=== PATIENT | female | born 1950 | race Caucasian/White ===

== ENCOUNTER 2022-04-13 11:58 | Emergency (ER) | payer MEDICARE, MEDICAID, SELFPAY ==
--- NOTE | ~2022-04-13 | CT_ITS ---
EXAMINATION: CT brain wo con DATE: 04/13/2022 13:32 INDICATION: Dizziness. Headache. TECHNIQUE: Computed tomography (CT) of the head was performed without intravenous contrast. The mA wa s adjusted according to patient size. Iterative reconstruction technique was employed. The dose-lengt h product was 605.33 mGy-cm. COMPARISON: Head CT 07/29/2011 FINDINGS: There are scattered areas of low attenuation in the cerebral white matter, which is within normal limits for the patient's age. There is no intracranial hemorrhage, acute infarction, or abnorm al intracranial mass lesion. The ventricles are normal in size. There are likely changes of left ocul ar lens replacement surgery. There is mild mucosal thickening in the paranasal sinuses. The mastoid a ir cells are normal. IMPRESSION: 1. Normal aging brain. Reviewed, dictated and finalized at location A. IMPRESSION: 1. Normal aging brain.
[2022-04-13 12:28] VITALS: BP 133/99; PULSE 86; RESP 22; TEMP 36.2; O2SAT 99
--- NOTE | 2022-04-13 12:52 | ECG_ITS ---
Measurements Intervals Chrisman Rate: 76 P: 56 WY: 186 QRS: 35 QRSD: 67 T: 39 QT: 354 QTc: 399 Interpretive Statements SINUS RHYTHM LOW QRS VOLTAGE IN PRECORDIAL LEADS BORDERLINE R WAVE PROGRESSION, ANTERIOR LEADS BASELINE ARTIFACT- I, III, AVL BORDERLINE ECG NO PREVIOUS ECG AVAILABLE FOR COMPARISON Electronically Signed On 04-13-2022 13:46:55 CDT by Clifford Jc D.O.
--- NOTE | 2022-04-13 12:53 | ED.FEMALEGU ---
HPI - Female Genitourinary General Chief complaint: Urogenital-Female Stated complaint: UTI/vomit/pain in stomach & kidneys Time Seen by Provider: 04/13/22 12:34 Source: patient History of Present Illness HPI Narrative: 71-year-old female with a history of diabetes mellitus, hypothyroidism, neuropathy, peripheral vascular disease, coronary artery disease status post CABG in 2007, COPD, lung nodules, chronic pain, status post hysterectomy, partial colectomy and cholecystectomy was admitted to the hospital 2 months ago for abdominal pain, chest pain and dizziness. She had a negative stress test according to the patient. The patient developed retention of urine for which she had a Baker's catheter placed. The Baker catheter was taken out 2 weeks ago by a urologist and advised intermittent self catheterization every 4 hours. The patient developed -- abdominal pain predominantly in the suprapubic region. The patient has a history of multiple abdominal surgeries including cholecystectomy, 4 C sections, hysterectomy at age 20, partial colectomy for bowel obstruction. -- dysuria and urethral pain for which she was started on Cipro. she is also noted to have bilateral flank pain. the patient has urethral pain whenever she self catheterizes herself. She is also noted to have urinary incontinence. -- dizziness -- Nausea and vomiting -- the patient has Fibromyalgia with chronic low back pain, abdominal pain for which she was on fentanyl and Merrill 10/325 at 1 point of time. The patient ran out of her Merrill 1 month ago. She was also noted to be allergic to fentanyl. -- patient gets 1 L infusion of normal saline 3 times a week.She had colectomy following which she has large volume diarrhea which makes a dehydrated. She has been getting the IV saline infusions for the past 5 years. MD elicited complaint: dysuria, UTI and urinary incontinence Pertinent past history: recurrent UTIs, urinary incontinence and diabetes Onset (ago): day(s) Location of symptoms: perineum, suprapubic, urethra and low back Severity: severe Female Urogenital Radiation: Non-Radiating Quality of pain: sharp and burning Consistency: intermittent Vaginal discharge: none Vaginal bleeding: none Urinary symptoms: Dysuria, Urgency, Frequency, Hematuria, Difficulty Urinating and Flank Pain Exacerbating factors: none Relieving factors: none Associated symptoms: denies other symptoms Treatment prior to arrival: none Patient : No Related Data Para: 4 Home Medications Medication Instructions Recorded Confirmed albuterol sulfate 90 mcg/actuation 2 puff inhalation QID PRN 04/13/22 04/13/22 aerosol inhaler (ProAir HFA) Shortness Of Breath aripiprazole 10 mg tablet (Abilify) 10 mg PO DAILY 04/13/22 04/13/22 aspirin 325 mg tablet 325 mg PO DAILY 04/13/22 04/13/22 atorvastatin 20 mg tablet 20 mg PO DAILY 04/13/22 04/13/22 buspirone 10 mg tablet 10 mg PO TID 04/13/22 04/13/22 clopidogrel 75 mg tablet 75 mg PO DAILY 04/13/22 04/13/22 cyclobenzaprine 10 mg tablet 10 mg PO TID PRN Pain 04/13/22 04/13/22 fluticasone furoate 100 1 inh inhalation DAILY 04/13/22 04/13/22 mcg-vilanterol 25 mcg/dose inhalation powder hydroxyzine HCl 25 mg tablet 25 mg PO TID PRN Itching 04/13/22 04/13/22 insulin aspart 8 - 18 unit subcut TID 04/13/22 04/13/22 (niacinamide)(U-100) 100 unit/mL(3 mL) subcutaneous pen insulin aspart U-100 100 unit/mL 75 unit subcut DAILY 04/13/22 04/13/22 subcutaneous cartridge insulin degludec 200 unit/mL (3 26 unit subcut DAILY 04/13/22 04/13/22 mL) subcutaneous pen (Tresiba FlexTouch U-200 insulin) ipratropium 0.5 mg-albuterol 3 mg 3 ml inhalation Q4H PRN SOB 04/13/22 04/13/22 (2.5 mg base)/3 mL nebulization soln ipratropium 20 mcg-albuterol 100 1 puff inhalation QID 04/13/22 04/13/22 mcg/actuation mist for inhalation (Combivent Respimat) isosorbide mononitrate 30 mg 30 mg PO DAILY 04/13/22 04/13/22 tablet,extended release 24 hr ivabradine 7.5 mg
[2022-04-13 13:02] LABS: Add Urine Microscopic? YES; Appearance Urine Clear (Clear); Bilirubin Urine Negative (Negative); Blood Urine Negative (Negative); Color Urine Light Yellow (Yellow); Glucose Urine UA Negative (Negative); Ketones Urine Negative (Negative); Leukocyte Esterase Ur Trace (Negative); Nitrate Urine Positive (Negative); Protein Urine Trace (Negative); Specific Grav Ur 1.015 (1.010-1.020); Urobilinogen Urine 0.2 mg/dL (0.2-1.0)
[2022-04-13 13:06] LABS: Bacteria Urine 3+ /hpf; RBC Urine None seen /hpf (0-2); Squamous Epithelial Cell Urine None seen /hpf (Few)
[2022-04-13 13:24] LABS: Basophils Absolute Auto 0.06 K/mm3 (0.00-0.10); Basophils Percent Auto 0.8 % (0.0-1.0); Eosinophils Absolute Auto 0.27 K/mm3 (0.02-0.50); Eosinophils Percent Auto 3.6 % (1.0-6.0); Hematocrit 36.6 % (35.0-42.0); Hemoglobin 12.4 g/dL (11.7-13.8); Immature Granulocyte Absolute 0.03 K/mm3 (0.00-0.00); Immature Granulocyte Percent A 0.4 % (0.0-0.0); Lymphocytes Absolute Auto 2.62 K/mm3 (1.10-4.50); Mean Corpuscular HGB Conc 33.9 g/dL (32.0-36.0); Mean Corpuscular Hemoglobin 31.2 pg (27.0-31.0); Mean Corpuscular Volume 92.2 fL (78.0-102.0); Mean Platelet Volume 9.9 fl (9.2-11.8); Neutrophils Absolute Auto 3.9 K/mm3 (1.7-7.2); Neutrophils Percent Auto 52.2 % (50.0-70.0); Platelet Count Result 205 K/mm3 (150-420); Red Blood Count 3.97 M/mm3 (4.20-5.40); Red Cell Distribution Width 12.8 % (11.6-14.4); White Blood Count 7.5 K/mm3 (4.8-10.8)
[2022-04-13 13:39] LABS: Prothrombin Time 10.6 Seconds (9.50-12.10)
[2022-04-13 13:40] VITALS: BP 133/50; PULSE 73; RESP 16; TEMP 36.3; O2SAT 98
[2022-04-13 13:45] LABS: Troponin I 6.4 ng/L (0.00-60.4)
[2022-04-13 13:45] LABS: Alanine Aminotransferase 29 U/L (14-59); Albumin Level 3.4 g/dL (3.4-5.0); Alkaline Phosphatase 113 U/L (46-116); Anion Gap 8 mmol/L (8-16); Aspartate Amino Transferase 33 U/L (15-37); Bilirubin,Total 0.4 mg/dL (0.00-1.00); Blood Urea Nitrogen 16 mg/dL (7-18); Calcium 8.8 mg/dL (8.5-10.1); Carbon Dioxide 24 mmol/L (21-32); Chloride 103 mmol/L (98-108); Estimated CRCL calculation 38 ml/min; Estimated Glomerular Filt Rate 51; Glucose 175 mg/dL (70-99); Lipase 138 U/L (73-393); Osmolality Calculated 285 mOsm/kg (285-295); Potassium 4.7 mmol/L (3.5-5.1); Sodium 135 mmol/L (136-145); Total Protein 7.1 g/dL (6.4-8.2)
[2022-04-13 14:38] VITALS: BP 146/88; PULSE 77; RESP 16; TEMP 36.4; O2SAT 97
--- NOTE | 2022-04-13 14:42 | PC.NURSE ---
On 04/13/22, the student, [ roxie vaca], provided care and completed [facility] documentation on this patient. I have reviewed the student's documentation and agree with the findings.
[2022-04-13] MEDS: HEPARIN SODIUM LOCK FLUSH 500 UNITS/5 ML SYRINGE (14:44)
== END 2022-04-13 14:44 | disposition home or self-care (01) ==
PROVIDERS: Emergency Provider Internal Medicine Critical Care Medicine
DX: N39.0 Urinary tract infection, site not specified (principal); N18.9 Chronic kidney disease, unspecified; E11.65 Type 2 diabetes mellitus with hyperglycemia; Z79.4 Long term (current) use of insulin; J44.9 Chronic obstructive pulmonary disease, unspecified; I25.10 Atherosclerotic heart disease of native coronary artery without angina pectoris; E03.9 Hypothyroidism, unspecified
CPT/HCPCS: 36415; 51701; 70450; 80053; 81001; 83605; 83690; 84484; 85025; 85610; 85730; 87040; 93005; 99284

== ENCOUNTER 2024-06-02 11:34 | Outpatient (CLI) | payer MEDICARE, SELFPAY ==
--- NOTE | ~2024-06-02 | XR_ITS ---
CHEST RADIOGRAPH, PA AND LATERAL CLINICAL HISTORY: shortness of breath . COMPARISON: None available TECHNIQUE: PA and lateral views of the chest. FINDINGS Sternal wires and mediastinal clips are identified, the wires are midline and intact. The remainder of the cardiomediastinal silhouette is otherwise unremarkable. The lungs are clear. Visualized osseous structures and soft tissues are unremarkable. IMPRESSION: No focal infiltrate or effusion. Reviewed, dictated and finalized at location A. ICIST [employer]ID STATE
--- NOTE | ~2024-06-02 | NM_ITS ---
EXAMINATION: NM lung vent and perfusion DATE: 06/02/2024 12:25 INDICATION: Shortness of breath. TECHNIQUE: 20.3 mCi Xenon-133 was given for ventilation images. 5.5 mCi Tc-99m MAA was administered i ntravenously for perfusion images. Scintigraphic images of the chest were obtained. COMPARISON: Chest 2 views 06/02/24 FINDINGS: Ventilation images demonstrate small defects in the upper lobes. There is retention of activity in th e lower lung zones bilaterally. Perfusion images demonstrate no defects. IMPRESSION: 1. Normal perfusion. Reviewed, dictated and finalized at location A. 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 Normal perfusion.
== END 2024-06-02 11:35 | disposition home or self-care (01) ==
PROVIDERS: PCP Physician Assistant; Visit Provider Physician Assistant
DX: R79.89 Other specified abnormal findings of blood chemistry (principal); R06.02 Shortness of breath
CPT/HCPCS: 71046; 78582; A9540; A9558